=== PATIENT | male | born 1995 | race American Indian/Alaskan Native ===

== ENCOUNTER 2016-09-29 12:44 | Emergency (ER) | payer SELFPAY ==
[2016-09-29 13:04] VITALS: BP 124/83
== END 2016-09-29 13:50 | disposition left against medical advice (07) ==
LOC: ED 12:44
DX: M54.9 Dorsalgia, unspecified (principal); Z53.21 Procedure and treatment not carried out due to patient leaving prior to being seen by health care provider

== ENCOUNTER 2016-10-22 13:22 | Emergency (ER) | payer OTHER ==
--- NOTE | 2016-10-22 17:03 | XRay Report ---
FINAL REPORT EXAM: XR SHOULDER 2 RT HISTORY: r/o dislocation TECHNIQUE: AP and Y views of the right shoulder PRIORS: None. FINDINGS: There is no evidence of acute fracture or dislocation. Joint spaces are maintained and bony mineralization is normal. Soft tissues are unremarkable. IMPRESSION: No acute abnormality identified in the right shoulder.
[2016-10-22] MEDS ORDERED: TORADOL IM ONE (17:37)
[2016-10-22] MEDS ORDERED: ZOFRAN ODT PO ONE (17:37)
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
[2016-10-22 17:54] VITALS: BP 122/72
== END 2016-10-22 17:53 | disposition home or self-care (01) ==
LOC: ED 13:22
DX: M25.511 Pain in right shoulder (principal); J45.909 Unspecified asthma, uncomplicated; F17.200 Nicotine dependence, unspecified, uncomplicated
CPT/HCPCS: 99283

== ENCOUNTER 2017-05-24 09:39 | Emergency (ER) | payer OTHER ==
[2017-05-24 10:41] VITALS: BP 113/75
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
[2017-05-24] MEDS ORDERED: FUL-GLO OP ONE (13:16)
[2017-05-24] MEDS ORDERED: GENTAMICIN 0.3% OPHTH SOLN OD ONE (13:17)
[2017-05-24] MEDS ORDERED: TETRACAINE 0.5% OU ONE (13:17)
== END 2017-05-24 14:47 | disposition home or self-care (01) ==
LOC: ED 09:39
DX: S00.11XA Contusion of right eyelid and periocular area, initial encounter (principal); M25.512 Pain in left shoulder; Y08.89XA Assault by other specified means, initial encounter; Y93.9 Activity, unspecified; Y92.9 Unspecified place or not applicable; Y99.9 Unspecified external cause status
CPT/HCPCS: 70486; 99284